=== PATIENT | male | born 1970 | race Caucasian/White ===

== ENCOUNTER 2022-10-09 06:54 | Day surgery (SDC) | payer BC ==
[2022-10-09] MEDS ORDERED: Sodium Chloride 0.9(Preservative Free) 10 ML IJ ONE (06:55)
[2022-10-09] MEDS ORDERED: Depo-Medrol 40 MG/ML IM ONE (06:55)
[2022-10-09] MEDS ORDERED: DIPRIVAN 200 MG/20 ML IV ONE (08:16)
--- NOTE | 2022-10-09 10:07 | XRAY ---
48 seconds of fluoroscopy was used in surgery for a right L4-S1 transforaminal SAMEERA.
--- NOTE | 2022-10-09 10:07 | XRAY ---
Indication: Right L4-S1 transforaminal SAMEERA. Intraoperative fluoroscopy provided for 48 seconds. 5 digital spot image submitted for interpretation demonstrates posterior needle tips projecting over the expected right L4 and L5 nerve roots. Small amount of contrast injected for needle tip placement. Correlate with intraoperative findings/report.
[2022-10-09] MEDS ORDERED: Lactated Ringers 1,000 ML IV ONE (13:39)
== END 2022-10-09 08:48 | disposition home or self-care (01) ==
LOC: SDC-PAIN 06:54
PROVIDERS: ATTEND Psychiatry & Neurology Pain Medicine
DX: M54.16 Radiculopathy, lumbar region (principal); E11.9 Type 2 diabetes mellitus without complications; Z79.899 Other long term (current) drug therapy
CPT/HCPCS: 64483; 64484; 72100; 77003; 82947; J1030; J2704; Q9966

== ENCOUNTER 2022-12-19 06:57 | Day surgery (SDC) | payer BC ==
[2022-12-19] MEDS ORDERED: LIDOCAINE HCL 1% 50 MG/5 ML VL PF IJ ONE (06:58)
[2022-12-19] MEDS ORDERED: Decadron 4 MG INJ IV ONE (06:58)
[2022-12-19] MEDS ORDERED: DIPRIVAN 200 MG/20 ML IV ONE (08:26)
[2022-12-19] MEDS ORDERED: Lactated Ringers 1,000 ML IV ONE (08:55)
--- NOTE | 2022-12-19 09:50 | XRAY ---
Indication: Right piriformis injection. Intraoperative fluoroscopy provided for 13 seconds. Single digital spot image submitted for interpretation demonstrates posterior needle tip projecting over the right piriformis. Small amount of contrast injected for needle tip placement. Correlate with intraoperative findings/report.
--- NOTE | 2022-12-19 10:02 | XRAY ---
13 seconds of fluoroscopy was used in surgery for a right piriformis injection.
== END 2022-12-19 08:49 | disposition home or self-care (01) ==
LOC: SDC-PAIN 06:57
PROVIDERS: ATTEND Psychiatry & Neurology Pain Medicine
DX: M79.18 Myalgia, other site (principal); E11.9 Type 2 diabetes mellitus without complications; Z79.899 Other long term (current) drug therapy
CPT/HCPCS: 20552; 72170; 77002; 82947; J1100; J2001; J2704; Q9966

== ENCOUNTER 2023-02-13 06:57 | Day surgery (SDC) | payer BC ==
[2023-02-13] MEDS ORDERED: XYLOCAINE 1% HCL 20 ML MDV IJ ONE (06:58)
[2023-02-13] MEDS ORDERED: Depo-Medrol 40 MG/ML IM ONE (06:58)
[2023-02-13] MEDS ORDERED: Decadron 4 MG INJ IV ONE (06:58)
[2023-02-13] MEDS ORDERED: Sodium Chloride 0.9(Preservative Free) 10 ML IJ ONE (06:58)
[2023-02-13] MEDS ORDERED: Versed 2 MG/2 ML Injection ONE (08:24)
[2023-02-13] MEDS ORDERED: DIPRIVAN 200 MG/20 ML IV ONE (08:24)
[2023-02-13] MEDS ORDERED: Lactated Ringers 1,000 ML IV ONE (08:40)
--- NOTE | 2023-02-13 11:00 | XRAY ---
Indication: Right L4-S1 transforaminal SAMEERA. Intraoperative fluoroscopy provided for 34 seconds. 5 digital spot images submitted for interpretation demonstrates posterior needle tips projecting over the expected right L4 and L5 nerve roots. Small amount of contrast injected for needle tip placement. Correlate with intraoperative findings/report.
--- NOTE | 2023-02-13 11:02 | XRAY ---
Indication: Right piriformis injection. Intraoperative fluoroscopy provided for 8 seconds. Single digital spot image submitted for interpretation demonstrates posterior needle tip projecting over the expected right piriformis. Small amount of contrast injected for needle tip placement. Correlate with intraoperative findings/report.
--- NOTE | 2023-02-13 12:33 | XRAY ---
8 seconds of fluoroscopy was used in surgery for a right piriformis injection.
--- NOTE | 2023-02-13 12:33 | XRAY ---
34 seconds of fluoroscopy was used in surgery for a right L4-S1 transforaminal SAMEERA.
== END 2023-02-13 08:55 | disposition home or self-care (01) ==
LOC: SDC-PAIN 06:57
PROVIDERS: ATTEND Psychiatry & Neurology Pain Medicine
DX: M54.16 Radiculopathy, lumbar region (principal); M79.18 Myalgia, other site; E11.9 Type 2 diabetes mellitus without complications
CPT/HCPCS: 20552; 64483; 64484; 72100; 72170; 77002; 77003; 82947; J1030; J1100; J2250; J2704; Q9966